=== PATIENT | male | born 1960 | race Asian ===

== ENCOUNTER 2023-11-10 03:07 | Inpatient (IN) | payer OTHER ==
[2023-11-10] VITALS (13 sets, daily range): BP systolic 114–133; BP diastolic 67–95; PULSE 89–116; RESP 18–32; TEMP 97.4–98; O2SAT 96–100
[~2023-11-10] VITALS: Ht 167.6 cm; Wt 67.0 kg
[2023-11-10] MEDS ORDERED: ALBU18HF12 IH (03:16)
[2023-11-10] MEDS: MethylPREDNISolone SOD SUCC 125 MG/2 ML VIAL IVP ONE (03:21)
[2023-11-10] MEDS: ALBUTEROL SULFATE 2.5 MG/0.5 ML 5 ML NEB SOLUTION NEB ONE ×2 (03:23→04:59)
[2023-11-10] MEDS: IPRATROPIUM BROMIDE 0.5 MG/2.5 ML NEB SOLUTION NEB ONE ×2 (03:23→04:59)
[2023-11-10 04:00] LABS: COVID AG,FIA SOURCE NASAL SWAB
[2023-11-10] MEDS: EPINEPHrine 1:1,000 [1 MG/ML] VIAL SQ ONE (04:04)
[2023-11-10 04:10] LABS: BASOPHILS % (AUTO) 0.7 % (0.0-2.0); EOSINOPHILS % (AUTO) 4.5 % (1.0-6.0); HEMATOCRIT 43.7 % (41-53); HEMOGLOBIN 13.8 g/dL (13.5-17.5); LYMPHOCYTES # (AUTO) 2.4 K/uL (1.0-4.8); LYMPHOCYTES % (AUTO) 22.2 % (22.0-44.0); MEAN CORPUSCULAR HEMOGLOBIN 25.1 pg (26.0-34.0); MEAN CORPUSCULAR HGB CONC 31.6 G/dL (31.0-37.0); MEAN CORPUSCULAR VOLUME 79 fL (80-100); MONOCYTES # (AUTO) 0.7 K/uL (0.1-1.0); MONOCYTES % (AUTO) 6.8 % (2.0-9.0); NEUTROPHILS % (AUTO) 65.8 % (40.0-70.0); PLATELET COUNT (AUTO) 506 K/uL (150-450); RED BLOOD CELL COUNT(AUTO) 5.51 MIL/uL (4.50-5.90); RED CELL DISTRIBUTION WIDTH 14.3 % (11.5-14.5); WHITE BLOOD COUNT (AUTO) 10.7 K/uL (4.5-11.0)
[2023-11-10 04:18] LABS: INFLUENZA TYPE A NEGATIVE FOR TYPE A (NEGATIVE); INFLUENZA TYPE B NEGATIVE FOR TYPE B (NEGATIVE); SARS-COV2 (COVID) ANTIGEN,FIA Negative (Negative)
[2023-11-10 04:21] LABS: TROPONIN I-HIGH SENSITIVITY 61 ng/L (<76)
[2023-11-10 04:22] LABS: LACTIC ACID 1.4 mmol/L (0.4-2.0)
[2023-11-10 04:29] LABS: ANION GAP 5 mmol/L (8-16); CALCIUM, TOTAL 9.5 mg/dL (8.8-10.5); CARBON DIOXIDE 34 mmol/L (22-29); CHLORIDE 99 mmol/L (98-107); CREATININE 0.94 mg/dL (0.60-1.30); GLOMERULAR FILTR. RATE CALC > 60 mL/min (>60); GLUCOSE,RANDOM 124 mg/dL (70-110); LIPASE 33 U/L (16-77); POTASSIUM 4.1 mmol/L (3.5-5.1); SODIUM SERUM 138 mmol/L (136-145); UREA NITROGEN, BLOOD 12 mg/dL (7-18)
[2023-11-10 04:46] LABS: B-TYPE NATRIURETIC PEPTIDE 6 pg/mL (0-100)
[2023-11-10] MEDS ORDERED: BISACODYL 10 MG RECTAL RECTAL SUPPOSITORY PR PRN (12:15)
[2023-11-10] MEDS ORDERED: ACETAMINOPHEN 325 MG TABLET PO PRN (12:15)
[2023-11-10] MEDS ORDERED: ONDANSETRON HCL 4 MG/2 ML VIAL IVP PRN (12:15)
[2023-11-10] MEDS ORDERED: MAGNESIUM HYDROXIDE SUSPENSION 30 ML UDCUP PO PRN (12:15)
[2023-11-10] MEDS ORDERED: HYDROCODONE/ACETAMINOPHEN 5-325 MG TABLET PO PRN (12:15)
[2023-11-10] MEDS ORDERED: ZOLPIDEM TARTRATE 5 MG TABLET PO PRN (12:15)
[2023-11-10] MEDS ORDERED: MORPHINE SULFATE 2 MG/ML SYRINGE IVP PRN (12:15)
[2023-11-10] MEDS: MONTELUKAST SODIUM 10 MG TABLET PO SCH (12:36)
[2023-11-10] MEDS ORDERED: SODIUM CHLORIDE 0.9% 500 ML IV ONE (13:15)
[2023-11-10] MEDS: ALBUTEROL SULFATE 2.5 MG/0.5 ML NEB SOLUTION NEB SCH (15:48)
[2023-11-10] MEDS: IPRATROPIUM BROMIDE 0.5 MG/2.5 ML NEB SOLUTION NEB SCH (15:48)
[2023-11-10] MEDS: CefTRIAXone 1 GM/DEXTROSE 50 ML IV SCH (15:55)
[2023-11-10] MEDS ORDERED: BENZONATATE 100 MG CAPSULE PO SCH (16:00)
[2023-11-10] MEDS: AZITHROMYCIN 500 MG/NS 250 ML IV SCH (16:36)
[2023-11-10] MEDS: HEPARIN SODIUM,PORCINE 5,000 UNITS/ML VIAL SQ SCH (16:37)
[2023-11-10] MEDS: BENZONATATE 100 MG CAPSULE PO SCH (16:37)
[2023-11-10] MEDS: MethylPREDNISolone SOD SUCC 125 MG/2 ML VIAL IVP SCH (18:24)
[2023-11-10] MEDS: DOCUSATE SODIUM 100 MG CAPSULE PO SCH (20:02)
[2023-11-10] MEDS: GuaiFENesin SR 600 MG ER TABLET PO SCH (20:02)
[2023-11-11] VITALS (11 sets, daily range): BP systolic 115–136; BP diastolic 70–83; PULSE 86–110; RESP 17–21; TEMP 97.6–98.1; O2SAT 93–99
[2023-11-11 08:13] LABS: EOSINOPHILS % (AUTO) 0 % (1.0-6.0); HEMATOCRIT 41.6 % (41-53); HEMOGLOBIN 13.1 g/dL (13.5-17.5); LYMPHOCYTES # (AUTO) 0.9 K/uL (1.0-4.8); MEAN CORPUSCULAR HEMOGLOBIN 25.2 pg (26.0-34.0); MEAN CORPUSCULAR HGB CONC 31.4 G/dL (31.0-37.0); MEAN CORPUSCULAR VOLUME 80 fL (80-100); MONOCYTES # (AUTO) 0.2 K/uL (0.1-1.0); MONOCYTES % (AUTO) 0.9 % (2.0-9.0); NEUTROPHILS # (AUTO) 16.6 K/uL (1.8-7.7); PLATELET COUNT (AUTO) 468 K/uL (150-450); RED CELL DISTRIBUTION WIDTH 14.5 % (11.5-14.5); WHITE BLOOD COUNT (AUTO) 17.6 K/uL (4.5-11.0)
[2023-11-11 08:16] LABS: NEUTROPHILS % (AUTO) 94.1 % (40.0-70.0)
[2023-11-11 08:35] LABS: ANION GAP 7 mmol/L (8-16); CALCIUM, TOTAL 9.7 mg/dL (8.8-10.5); CARBON DIOXIDE 33 mmol/L (22-29); CHLORIDE 101 mmol/L (98-107); CREATININE 0.87 mg/dL (0.60-1.30); GLOMERULAR FILTR. RATE CALC > 60 mL/min (>60); GLUCOSE,RANDOM 134 mg/dL (70-110); POTASSIUM 4.7 mmol/L (3.5-5.1); SODIUM SERUM 141 mmol/L (136-145); UREA NITROGEN, BLOOD 20 mg/dL (7-18)
[2023-11-11] MEDS: PANTOPRAZOLE SODIUM 40 MG DR TABLET PO SCH (08:43)
[2023-11-12] VITALS (14 sets, daily range): BP systolic 115–139; BP diastolic 71–82; PULSE 87–102; RESP 16–22; TEMP 97.6–97.9; O2SAT 95–100
[2023-11-12] MEDS: BENZOCAINE/MENTHOL LOZENGE PO PRN (04:55)
[2023-11-12 06:04] LABS: APPEARANCE,URINE CLEAR (CLEAR); BILIRUBIN,URINE NEGATIVE (NEGATIVE); COLOR,URINE COLORLESS (YELLOW); GLUCOSE, URINE (UA) NEGATIVE (NEGATIVE); KETONES,URINE NEGATIVE (NEGATIVE); LEUKOCYTE ESTERASE ,URINE NEGATIVE (NEGATIVE); NITRATE,URINE NEGATIVE (NEGATIVE); OCCULT BLOOD,URINE NEGATIVE (NEGATIVE); PH,URINE 6.5 (5.0-8.0); PROTEIN,URINE NEGATIVE (NEGATIVE); SPECIFIC GRAVITIY, URINE 1.013 (1.003-1.030); UROBILINOGEN,URINE <=1.0 mg/dL (<=1.0)
[2023-11-12 06:08] LABS: BACTERIA,URINE Rare /HPF (None Seen); RBC,URINE 0-2 /HPF (0-2); WBC,URINE 0-2 /HPF (0-5)
[2023-11-12 07:04] LABS: EOSINOPHILS % (AUTO) 0 % (1.0-6.0); HEMATOCRIT 39.6 % (41-53); HEMOGLOBIN 12.5 g/dL (13.5-17.5); LYMPHOCYTES # (AUTO) 0.7 K/uL (1.0-4.8); LYMPHOCYTES % (AUTO) 3.1 % (22.0-44.0); MEAN CORPUSCULAR HGB CONC 31.5 G/dL (31.0-37.0); MEAN CORPUSCULAR VOLUME 79 fL (80-100); MONOCYTES # (AUTO) 0.3 K/uL (0.1-1.0); MONOCYTES % (AUTO) 1.5 % (2.0-9.0); NEUTROPHILS # (AUTO) 22.1 K/uL (1.8-7.7); PLATELET COUNT (AUTO) 521 K/uL (150-450); RED BLOOD CELL COUNT(AUTO) 4.98 MIL/uL (4.50-5.90); RED CELL DISTRIBUTION WIDTH 14.2 % (11.5-14.5); WHITE BLOOD COUNT (AUTO) 23.1 K/uL (4.5-11.0)
[2023-11-12 07:14] LABS: ANION GAP 7 mmol/L (8-16); CALCIUM, TOTAL 9.3 mg/dL (8.8-10.5); CARBON DIOXIDE 31 mmol/L (22-29); CHLORIDE 102 mmol/L (98-107); CREATININE 0.94 mg/dL (0.60-1.30); GLOMERULAR FILTR. RATE CALC > 60 mL/min (>60); GLUCOSE,RANDOM 127 mg/dL (70-110); POTASSIUM 3.9 mmol/L (3.5-5.1); SODIUM SERUM 140 mmol/L (136-145); UREA NITROGEN, BLOOD 22 mg/dL (7-18)
[2023-11-12 07:27] LABS: NEUTROPHILS % (AUTO) 95.4 % (40.0-70.0)
[2023-11-12] MEDS: IPRATROPIUM BROMIDE 0.5 MG/2.5 ML NEB SOLUTION NEB PRN (12:35)
[2023-11-12] MEDS: ALBUTEROL SULFATE 2.5 MG/0.5 ML NEB SOLUTION NEB PRN (12:35)
[2023-11-12 12:44] LABS: ABG BASE EXCESS 5.2 mmol/L (-2.0-3.0); ABG HCO3 28.5 mmol/L (22.0-26.0); ABG METHEMOGLOBIN 0.5 % (0.0-1.5); ABG OXYGEN CONTENT 17.5 mL/dL (15.0-23.0); ABG OXYGEN SATURATION 93.6 % (95.0-98.0); ABG OXYHEMOGLOBIN 92.2 % (94.0-100.0); ABG PCO2 45 mmHg (35-45); ABG PH 7.437 (7.35-7.450); ABG TOTAL HEMOGLOBIN 13.5 G/dL (12.0-18.0); PO2, ARTERIAL BG 66.4 mmHg (79.0-87.0); SOURCE, BLOOD GAS ARTERIAL; TEMPERATURE, FAHRENHEIT, BG 98.6 FAHREN (96.0-98.6)
[2023-11-12 12:47] LABS: ALLEN TEST, BLOOD GAS Positive; SITE, BLOOD GAS RT RADIAL
[2023-11-12 12:48] LABS: ABG A-A DIFF O2 80.6 mmHg (10-20.0); O2 DEVICE,BLOOD GAS CANNULA (ROOM AIR)
[2023-11-12] MEDS ORDERED: GUAIF600 PO (17:41)
[2023-11-12] MEDS ORDERED: ALBU18HF12 IH (17:41)
[2023-11-12] MEDS ORDERED: PRED-729 PO (17:41)
[2023-11-12] MEDS ORDERED: MONT-35 PO (17:41)
[2023-11-12] MEDS ORDERED: BENZ-227 PO (17:41)
[2023-11-12] MEDS: PredniSONE 20 MG TABLET PO ONE (18:11)
== END 2023-11-12 21:05 | disposition home or self-care (01) | DRG 133 ==
LOC: EMS 03:07 → EDBD 03:07 → EDH 07:35 → 5N 09:57
PROVIDERS: ADMIT Internal Medicine; ATTEND Internal Medicine
PROC: 5A09357 Assistance with Respiratory Ventilation, Less than 24 Consecutive Hours, Continuous Positive Airway Pressure (ICD-10-PCS; principal; 2023-11-10)
DX: J96.21 Acute and chronic respiratory failure with hypoxia (principal); J45.902 Unspecified asthma with status asthmaticus; Z99.81 Dependence on supplemental oxygen; Z20.822 Contact with and (suspected) exposure to COVID-19; F17.210 Nicotine dependence, cigarettes, uncomplicated; J44.9 Chronic obstructive pulmonary disease, unspecified; Z79.899 Other long term (current) drug therapy
CPT/HCPCS: 36600; 71045; 80048; 81001; 82805; 83605; 83690; 83880; 84484; 85025; 87804; 93005; 94640; 94644; 94660; 99285; J0171; J0456; J0696; J1644; J2919; J7040; Q9967; 36415-L1; 36415-TC; J7613

== ENCOUNTER 2024-01-27 11:29 | Inpatient (IN) | payer OTHER ==
[2024-01-27] VITALS (8 sets, daily range): PULSE 79–110; RESP 20–38; O2SAT 100
[~2024-01-27] VITALS: Ht 170.2 cm; Wt 77.3 kg
[~2024-01-27 11:29] MED LIST: ALBU18HF12 IH; BENZ-227 PO; GUAIF600 PO; MONT-35 PO; PRED-729 PO
[2024-01-27] MEDS ORDERED: MAGNESIUM SULFATE 2 GM in DEXTROSE 5%-WATER 100 ML IV ONE (11:45)
[2024-01-27] MEDS: IPRATROPIUM BROMIDE 0.5 MG/2.5 ML NEB SOLUTION NEB ONE (11:49)
[2024-01-27] MEDS: ALBUTEROL SULFATE 2.5 MG/0.5 ML 5 ML NEB SOLUTION NEB ONE (11:50)
[2024-01-27] MEDS: MethylPREDNISolone SOD SUCC 125 MG/2 ML VIAL IVP ONE (12:00)
[2024-01-27 12:06] LABS: ABG BASE EXCESS -1.4 mmol/L (-2.0-3.0); ABG CARBOXYHEMOGLOBIN 0.8 % (0.5-1.5); ABG HCO3 21.7 mmol/L (21.0-28.0); ABG METHEMOGLOBIN 0.6 % (0.0-1.5); ABG OXYGEN SATURATION 99.7 % (94.0-98.0); ABG OXYHEMOGLOBIN 98.3 % (94.0-98.0); ABG PCO2 73 mmHg (35.0-48.0); ABG TOTAL HEMOGLOBIN 15.1 G/dL (13.5-17.5); SOURCE, BLOOD GAS ARTERIAL; TEMPERATURE, FAHRENHEIT, BG 97.3 FAHREN (96.0-98.6)
[2024-01-27 12:08] LABS: ABG PH 7.181 (7.350-7.450)
[2024-01-27 12:09] LABS: ALLEN TEST, BLOOD GAS POS; O2 DEVICE,BLOOD GAS BIPAP (ROOM AIR); PO2, ARTERIAL BG 442.3 mmHg (83.0-108.0); SITE, BLOOD GAS RT BRACHIAL; SPONTANEOUS VT, BG 325 ml
[2024-01-27] MEDS: MAGNESIUM SULFATE 2 GM/WATER 50 ML IV ONE (12:17)
[2024-01-27] MEDS ORDERED: ONDANSETRON HCL 4 MG/2 ML VIAL IVP PRN (12:45)
[2024-01-27] MEDS ORDERED: IPRATROPIUM BROMIDE 0.5 MG/2.5 ML NEB SOLUTION NEB PRN (12:45)
[2024-01-27] MEDS ORDERED: ALBUTEROL SULFATE 2.5 MG/0.5 ML NEB SOLUTION NEB PRN (12:45)
[2024-01-27] MEDS ORDERED: 0.9% SODIUM CHLORIDE 10 ML SYRINGE IVP PRN (12:45)
[2024-01-27] MEDS ORDERED: ACETAMINOPHEN 325 MG TABLET PO PRN (12:45)
[2024-01-27] MEDS: SODIUM CHLORIDE 0.9% 250 ML IV ONE (13:07)
[2024-01-27 13:14] LABS: COVID AG,FIA SOURCE NASAL SWAB
[2024-01-27 13:25] LABS: BASOPHILS % (AUTO) 0.2 % (0.0-2.0); EOSINOPHILS % (AUTO) 0 % (1.0-6.0); HEMATOCRIT 48.5 % (41-53); LYMPHOCYTES # (AUTO) 0.6 K/uL (1.0-4.8); LYMPHOCYTES % (AUTO) 3.2 % (22.0-44.0); MEAN CORPUSCULAR HEMOGLOBIN 25.3 pg (26.0-34.0); MEAN CORPUSCULAR HGB CONC 30.8 G/dL (31.0-37.0); MEAN CORPUSCULAR VOLUME 82 fL (80-100); MONOCYTES % (AUTO) 5.6 % (2.0-9.0); NEUTROPHILS # (AUTO) 16.7 K/uL (1.8-7.7); PLATELET COUNT (AUTO) 365 K/uL (150-450); RED BLOOD CELL COUNT(AUTO) 5.92 MIL/uL (4.50-5.90); RED CELL DISTRIBUTION WIDTH 14.6 % (11.5-14.5); WHITE BLOOD COUNT (AUTO) 18.4 K/uL (4.5-11.0)
[2024-01-27 13:29] LABS: ANION GAP 7 mmol/L (8-16); CALCIUM, TOTAL 8.6 mg/dL (8.8-10.5); CARBON DIOXIDE 32 mmol/L (22-29); CHLORIDE 100 mmol/L (98-107); CREATININE 0.89 mg/dL (0.60-1.30); GLOMERULAR FILTR. RATE CALC > 60 mL/min (>60); GLUCOSE,RANDOM 109 mg/dL (70-110); POTASSIUM 4.7 mmol/L (3.5-5.1); SODIUM SERUM 139 mmol/L (136-145); UREA NITROGEN, BLOOD 10 mg/dL (7-18)
[2024-01-27] MEDS: CefTRIAXone 1 GM/DEXTROSE 50 ML IV ONE (13:36)
[2024-01-27 13:37] LABS: B-TYPE NATRIURETIC PEPTIDE 37 pg/mL (0-100)
[2024-01-27 13:38] LABS: INFLUENZA TYPE A NEGATIVE FOR TYPE A (NEGATIVE); INFLUENZA TYPE B NEGATIVE FOR TYPE B (NEGATIVE); SARS-COV2 (COVID) ANTIGEN,FIA Negative (Negative)
[2024-01-27 13:39] LABS: TROPONIN I-HIGH SENSITIVITY 683 ng/L (<76)
[2024-01-27 13:54] LABS: ALANINE AMINOTRANSFERASE 21 U/L (12-78); ALBUMIN 3.4 g/dL (3.4-5.0); ALKALINE PHOSPHATASE 59 U/L (46-116); ASPARTATE AMINOTRANSFERASE 25 U/L (15-37); BILIRUBIN,TOTAL 0.2 mg/dL (0.1-1.0); CREATINE KINASE, TOTAL ONLY 241 U/L (39-308); TOTAL PROTEIN, SERUM 7.7 g/dL (6.4-8.2)
[2024-01-27] MEDS: AZITHROMYCIN 500 MG/NS 250 ML IV ONE (13:56)
[2024-01-27] MEDS: ASPIRIN 81 MG CHEWABLE TABLET PO ONE (13:56)
[2024-01-27 14:20] LABS: LACTATE DEHYDROGENASE 270 U/L (85-227)
[2024-01-27 14:26] LABS: LACTIC ACID 2.3 mmol/L (0.4-2.0)
[2024-01-27] MEDS: SODIUM CHLORIDE 0.9% 750 ML IV ONE (14:31)
[2024-01-27 14:34] LABS: ABG BASE EXCESS 0.3 mmol/L (-2.0-3.0); ABG CARBOXYHEMOGLOBIN 0.4 % (0.5-1.5); ABG HCO3 23.9 mmol/L (21.0-28.0); ABG METHEMOGLOBIN 0.7 % (0.0-1.5); ABG OXYGEN CONTENT 21.4 mL/dL (15.0-23.0); ABG OXYGEN SATURATION 99.7 % (94.0-98.0); ABG OXYHEMOGLOBIN 98.6 % (94.0-98.0); ABG PCO2 54 mmHg (35.0-48.0); ABG PH 7.307 (7.350-7.450); ABG TOTAL HEMOGLOBIN 14.4 G/dL (13.5-17.5); SOURCE, BLOOD GAS ARTERIAL; TEMPERATURE, FAHRENHEIT, BG 97.1 FAHREN (96.0-98.6)
[2024-01-27 14:35] LABS: ALLEN TEST, BLOOD GAS POS; O2 DEVICE,BLOOD GAS BIPAP (ROOM AIR); SITE, BLOOD GAS ROSS
[2024-01-27 14:36] LABS: SPONTANEOUS VT, BG 325 ml
[2024-01-27] MEDS: IPRATROPIUM BROMIDE 0.5 MG/2.5 ML NEB SOLUTION NEB SCH (14:48)
[2024-01-27] MEDS: ALBUTEROL SULFATE 2.5 MG/0.5 ML NEB SOLUTION NEB SCH (14:48)
[2024-01-27 15:22] LABS: TROPONIN I-HIGH SENSITIVITY 1266 ng/L (<76)
[2024-01-27] MEDS ORDERED: HEPARIN SODIUM,PORCINE 5,000 UNITS/ML VIAL IVP PRN (15:30)
[2024-01-27] MEDS: HEPARIN SODIUM,PORCINE 5,000 UNITS/ML VIAL IVP ONE (15:49)
[2024-01-27] MEDS: HEPARIN SODIUM 25000 UNITS/D5W 250 ML IV PRN (15:53)
[2024-01-27] MEDS: ATORVASTATIN CALCIUM 40 MG TABLET PO ONE (15:56)
[2024-01-27] MEDS ORDERED: HEPARIN SODIUM,PORCINE 5,000 UNITS/ML VIAL SQ SCH (16:00)
[2024-01-27] MEDS: ASPIRIN 300 MG RECTAL SUPPOSITORY PR ONE (16:19)
[2024-01-27] MEDS ORDERED: BENZONATATE 100 MG CAPSULE PO PRN (16:30)
[2024-01-27] MEDS: DEXTROSE 5%-LACTATED RINGERS 1,000 ML IV ONE (17:32)
[2024-01-27] MEDS: RINGERS SOLUTION,LACTATED 500 ML IV ONE (19:35)
[2024-01-27] MEDS: CHLORHEXIDINE GLUCONATE 2% TOWELETTE [2'S/6'S] TP SCH (21:10)
[2024-01-27 23:32] LABS: APPEARANCE,URINE CLEAR (CLEAR); BILIRUBIN,URINE NEGATIVE (NEGATIVE); COLOR,URINE LIGHT YELLOW (YELLOW); GLUCOSE, URINE (UA) TRACE mg/dL (NEGATIVE); KETONES,URINE 40-60 mg/dL (NEGATIVE); LEUKOCYTE ESTERASE ,URINE NEGATIVE (NEGATIVE); NITRATE,URINE NEGATIVE (NEGATIVE); OCCULT BLOOD,URINE TRACE (NEGATIVE); PH,URINE 5.5 (5.0-8.0); PROTEIN,URINE TRACE mg/dL (NEGATIVE); SPECIFIC GRAVITIY, URINE 1.015 (1.003-1.030); UROBILINOGEN,URINE <=1.0 mg/dL (<=1.0)
[2024-01-27] MEDS: HEPARIN SODIUM,PORCINE 5,000 UNITS/ML VIAL IVP PRN (23:39)
[2024-01-27 23:55] LABS: BACTERIA,URINE Rare /HPF (None Seen); WBC,URINE 0-2 /HPF (0-5)
[2024-01-28] VITALS (16 sets, daily range): BP systolic 108–141; BP diastolic 64–81; PULSE 72–108; RESP 18–24; TEMP 97.8–98.6; O2SAT 94–100
[2024-01-28 06:25] LABS: BASOPHILS % (AUTO) 0.3 % (0.0-2.0); EOSINOPHILS % (AUTO) 0 % (1.0-6.0); HEMATOCRIT 41.8 % (41-53); HEMOGLOBIN 12.9 g/dL (13.5-17.5); LYMPHOCYTES % (AUTO) 10.8 % (22.0-44.0); MEAN CORPUSCULAR VOLUME 81 fL (80-100); MONOCYTES # (AUTO) 0.8 K/uL (0.1-1.0); MONOCYTES % (AUTO) 8.2 % (2.0-9.0); NEUTROPHILS # (AUTO) 7.6 K/uL (1.8-7.7); NEUTROPHILS % (AUTO) 80.7 % (40.0-70.0); PLATELET COUNT (AUTO) 359 K/uL (150-450); RED BLOOD CELL COUNT(AUTO) 5.17 MIL/uL (4.50-5.90); RED CELL DISTRIBUTION WIDTH 14.6 % (11.5-14.5); WHITE BLOOD COUNT (AUTO) 9.4 K/uL (4.5-11.0)
[2024-01-28 06:53] LABS: TROPONIN I-HIGH SENSITIVITY 1245 ng/L (<76)
[2024-01-28] MEDS: FAMOTIDINE 20 MG/2 ML VIAL IVP SCH (08:31)
[2024-01-28] MEDS: MethylPREDNISolone SOD SUCC 125 MG/2 ML VIAL IVP SCH ×2 (08:32→17:30)
[2024-01-28] MEDS: ASPIRIN 81 MG DR TABLET PO SCH (09:16)
[2024-01-28] MEDS ORDERED: SODIUM CHLORIDE 0.9% 500 ML IV ONE (14:14)
[2024-01-28] MEDS: CefTRIAXone 1 GM/DEXTROSE 50 ML IV SCH (14:37)
[2024-01-28] MEDS: AZITHROMYCIN 500 MG/NS 250 ML IV SCH (15:40)
[2024-01-28] MEDS: BUDESONIDE 0.5 MG/2 ML NEB SOLUTION NEB SCH (20:06)
[2024-01-28] MEDS: ATORVASTATIN CALCIUM 40 MG TABLET PO SCH (20:30)
[2024-01-29] VITALS (12 sets, daily range): BP systolic 122–155; BP diastolic 72–87; PULSE 86–101; RESP 17–22; TEMP 97.6–98.5; O2SAT 92–99
[2024-01-29 06:34] LABS: PH,URINE DRUG SCREEN 7.5 (5.0-8.0)
[2024-01-29 06:42] LABS: ALCOHOL, URINE DRUG SCREEN NEGATIVE (NEGATIVE); AMPHET/METH SCREEN,URINE NEGATIVE (NEGATIVE); BARBITURATE SCREEN, URINE NEGATIVE (NEGATIVE); BENZODIAZEPINES SCREEN,URINE NEGATIVE (NEGATIVE); CANNABINOID SCREEN,URINE POSITIVE (NEGATIVE); COCAINE SCREEN,URINE NEGATIVE (NEGATIVE); METHADONE SCREEN, URINE NEGATIVE (NEGATIVE); OPIATE SCREEN,URINE NEGATIVE (NEGATIVE); PHENCYCLIDINE SCREEN,URINE NEGATIVE (NEGATIVE)
[2024-01-29 08:03] LABS: ANION GAP 9 mmol/L (8-16); CALCIUM, TOTAL 8.6 mg/dL (8.8-10.5); CARBON DIOXIDE 28 mmol/L (22-29); CHLORIDE 104 mmol/L (98-107); CREATININE 0.96 mg/dL (0.60-1.30); GLOMERULAR FILTR. RATE CALC > 60 mL/min (>60); GLUCOSE,RANDOM 153 mg/dL (70-110); POTASSIUM 3.9 mmol/L (3.5-5.1); SODIUM SERUM 141 mmol/L (136-145); UREA NITROGEN, BLOOD 22 mg/dL (7-18)
[2024-01-29 08:10] LABS: BASOPHILS % (AUTO) 0.1 % (0.0-2.0); EOSINOPHILS % (AUTO) 0 % (1.0-6.0); HEMATOCRIT 41.5 % (41-53); HEMOGLOBIN 12.8 g/dL (13.5-17.5); LYMPHOCYTES # (AUTO) 0.8 K/uL (1.0-4.8); LYMPHOCYTES % (AUTO) 4.9 % (22.0-44.0); MEAN CORPUSCULAR HGB CONC 30.9 G/dL (31.0-37.0); MEAN CORPUSCULAR VOLUME 81 fL (80-100); MONOCYTES # (AUTO) 0.4 K/uL (0.1-1.0); MONOCYTES % (AUTO) 2.6 % (2.0-9.0); NEUTROPHILS # (AUTO) 14.8 K/uL (1.8-7.7); PLATELET COUNT (AUTO) 355 K/uL (150-450); RED BLOOD CELL COUNT(AUTO) 5.13 MIL/uL (4.50-5.90); RED CELL DISTRIBUTION WIDTH 14.7 % (11.5-14.5)
[2024-01-29 08:13] LABS: NEUTROPHILS % (AUTO) 92.4 % (40.0-70.0)
[2024-01-29 08:18] LABS: TROPONIN I-HIGH SENSITIVITY 472 ng/L (<76)
[2024-01-30] VITALS (10 sets, daily range): BP systolic 123–155; BP diastolic 75–89; PULSE 72–110; RESP 18–22; TEMP 97.4–98.2; O2SAT 91–99
[2024-01-30 06:31] LABS: BASOPHILS % (AUTO) 0.2 % (0.0-2.0); EOSINOPHILS % (AUTO) 0 % (1.0-6.0); HEMATOCRIT 42.9 % (41-53); HEMOGLOBIN 13.5 g/dL (13.5-17.5); LYMPHOCYTES # (AUTO) 0.7 K/uL (1.0-4.8); LYMPHOCYTES % (AUTO) 3.5 % (22.0-44.0); MEAN CORPUSCULAR HEMOGLOBIN 25.3 pg (26.0-34.0); MEAN CORPUSCULAR HGB CONC 31.5 G/dL (31.0-37.0); MEAN CORPUSCULAR VOLUME 80 fL (80-100); MONOCYTES # (AUTO) 0.3 K/uL (0.1-1.0); MONOCYTES % (AUTO) 1.5 % (2.0-9.0); NEUTROPHILS # (AUTO) 18.4 K/uL (1.8-7.7); PLATELET COUNT (AUTO) 383 K/uL (150-450); RED BLOOD CELL COUNT(AUTO) 5.34 MIL/uL (4.50-5.90); RED CELL DISTRIBUTION WIDTH 14.5 % (11.5-14.5); WHITE BLOOD COUNT (AUTO) 19.4 K/uL (4.5-11.0)
[2024-01-30 06:54] LABS: ANION GAP 8 mmol/L (8-16); CALCIUM, TOTAL 8.8 mg/dL (8.8-10.5); CARBON DIOXIDE 30 mmol/L (22-29); CHLORIDE 103 mmol/L (98-107); CREATININE 0.84 mg/dL (0.60-1.30); GLOMERULAR FILTR. RATE CALC > 60 mL/min (>60); GLUCOSE,RANDOM 131 mg/dL (70-110); SODIUM SERUM 141 mmol/L (136-145); UREA NITROGEN, BLOOD 21 mg/dL (7-18)
[2024-01-30 06:58] LABS: NEUTROPHILS % (AUTO) 94.8 % (40.0-70.0)
[2024-01-30] MEDS: CLOPIDOGREL BISULFATE 75 MG TABLET PO SCH (08:06)
[2024-01-30] MEDS: HEPARIN SODIUM,PORCINE 5,000 UNITS/ML VIAL SQ SCH (08:15)
[2024-01-31] VITALS (10 sets, daily range): BP systolic 109–147; BP diastolic 65–95; PULSE 16–121; RESP 16–20; TEMP 97.6–98.6; O2SAT 92–99
[2024-01-31 06:33] LABS: BASOPHILS % (AUTO) 0.1 % (0.0-2.0); EOSINOPHILS % (AUTO) 0 % (1.0-6.0); HEMATOCRIT 41.3 % (41-53); LYMPHOCYTES # (AUTO) 0.6 K/uL (1.0-4.8); LYMPHOCYTES % (AUTO) 3.9 % (22.0-44.0); MEAN CORPUSCULAR HEMOGLOBIN 25.2 pg (26.0-34.0); MEAN CORPUSCULAR HGB CONC 31.5 G/dL (31.0-37.0); MEAN CORPUSCULAR VOLUME 80 fL (80-100); MONOCYTES # (AUTO) 0.3 K/uL (0.1-1.0); MONOCYTES % (AUTO) 2.1 % (2.0-9.0); NEUTROPHILS # (AUTO) 14.7 K/uL (1.8-7.7); PLATELET COUNT (AUTO) 365 K/uL (150-450); RED BLOOD CELL COUNT(AUTO) 5.16 MIL/uL (4.50-5.90); RED CELL DISTRIBUTION WIDTH 14.4 % (11.5-14.5); WHITE BLOOD COUNT (AUTO) 15.6 K/uL (4.5-11.0)
[2024-01-31 06:51] LABS: ANION GAP 7 mmol/L (8-16); CALCIUM, TOTAL 8.6 mg/dL (8.8-10.5); CARBON DIOXIDE 29 mmol/L (22-29); CHLORIDE 104 mmol/L (98-107); CREATININE 0.78 mg/dL (0.60-1.30); GLOMERULAR FILTR. RATE CALC > 60 mL/min (>60); GLUCOSE,RANDOM 143 mg/dL (70-110); POTASSIUM 3.9 mmol/L (3.5-5.1); SODIUM SERUM 140 mmol/L (136-145); UREA NITROGEN, BLOOD 22 mg/dL (7-18)
[2024-01-31 06:54] LABS: NEUTROPHILS % (AUTO) 93.9 % (40.0-70.0)
[2024-01-31] MEDS: MethylPREDNISolone SOD SUCC 40 MG/ML VIAL IVP SCH (18:34)
[2024-02-01] VITALS (21 sets, daily range): BP systolic 132–157; BP diastolic 76–103; PULSE 72–100; RESP 16–20; TEMP 97.4–98.5; O2SAT 94–98
[2024-02-01] MEDS ORDERED: LIDOCAINE/PF 1% 30 ML VIAL ONE (07:04)
[2024-02-01] MEDS ORDERED: IOHEXOL 300 MG/ML 100 ML VIAL ONE (07:04)
[2024-02-01] MEDS ORDERED: SODIUM BICARBONATE 50 MEQ/50 ML VIAL ONE (07:04)
[2024-02-01] MEDS ORDERED: HEPARIN SODIUM 1000 UNITS/NS 1,000 ML ONE (07:04)
[2024-02-01] MEDS ORDERED: NITROGLYCERIN 50 MG/D5% WATER 250 ML ONE (07:09)
[2024-02-01] MEDS ORDERED: FentaNYL CITRATE PF 100 MCG/2 ML VIAL ONE (07:09)
[2024-02-01] MEDS ORDERED: VERAPAMIL HCL 2.5 MG/ML 2 ML VIAL ONE (07:09)
[2024-02-01] MEDS ORDERED: MIDAZOLAM HCL 2 MG/2 ML VIAL ONE (07:10)
[2024-02-01] MEDS: HEPARIN SODIUM,PORCINE 1,000 UNITS/ML 10 ML VIAL IARTER ONE (08:57)
[2024-02-01] MEDS: IOHEXOL 300 MG/ML 100 ML VIAL IARTER ONE (08:58)
[2024-02-01] MEDS: FentaNYL CITRATE PF 100 MCG/2 ML VIAL IVP ONE (08:59)
[2024-02-01] MEDS: MIDAZOLAM HCL 2 MG/2 ML VIAL IVP ONE (08:59)
[2024-02-01] MEDS: NITROGLYCERIN/D5W 50 MG/250 ML IV BOTTLE IARTER ONE (09:01)
[2024-02-01] MEDS: LIDOCAINE 1% 30 ML/SOD BICARB 8.4% 4 ML SQ ONE (09:02)
[2024-02-01] MEDS: VERAPAMIL HCL 2.5 MG/ML 2 ML VIAL IARTER ONE (09:03)
[2024-02-01] MEDS: SODIUM CHLORIDE 0.9% 500 ML IV ONE (09:03)
[2024-02-01] MEDS: PredniSONE 20 MG TABLET PO SCH (17:34)
[2024-02-02] VITALS (7 sets, daily range): BP systolic 138–172; BP diastolic 64–97; PULSE 80–88; RESP 18–20; TEMP 97.7–98; O2SAT 94–99
[2024-02-02] MEDS ORDERED: ASPI-1444 PO (09:46)
[2024-02-02] MEDS ORDERED: ATOR40TA28 PO (09:46)
[2024-02-02] MEDS ORDERED: PANT-31 PO (09:47)
[2024-02-02] MEDS ORDERED: PRED-554 PO (09:48)
== END 2024-02-02 15:30 | disposition home or self-care (01) | DRG 720 ==
LOC: EMS 11:29 → EDBEDREQ 14:47 → EDH 18:47 → 5S 01-28 10:20
PROVIDERS: ADMIT Internal Medicine; ATTEND Internal Medicine
PROC: 5A09357 Assistance with Respiratory Ventilation, Less than 24 Consecutive Hours, Continuous Positive Airway Pressure (ICD-10-PCS; 2024-01-27)
PROC: 5A09357 Assistance with Respiratory Ventilation, Less than 24 Consecutive Hours, Continuous Positive Airway Pressure (ICD-10-PCS; 2024-01-28)
PROC: 4A023N7 Measurement of Cardiac Sampling and Pressure, Left Heart, Percutaneous Approach (ICD-10-PCS; principal; 2024-02-01)
PROC: B2151ZZ Fluoroscopy of Left Heart using Low Osmolar Contrast (ICD-10-PCS; 2024-02-01)
PROC: B2111ZZ Fluoroscopy of Multiple Coronary Arteries using Low Osmolar Contrast (ICD-10-PCS; 2024-02-01)
DX: A41.9 Sepsis, unspecified organism (principal); J96.01 Acute respiratory failure with hypoxia; I21.4 Non-ST elevation (NSTEMI) myocardial infarction; J45.902 Unspecified asthma with status asthmaticus; E87.29 Other acidosis; J18.9 Pneumonia, unspecified organism; J45.901 Unspecified asthma with (acute) exacerbation; Z20.822 Contact with and (suspected) exposure to COVID-19; J96.02 Acute respiratory failure with hypercapnia; F17.210 Nicotine dependence, cigarettes, uncomplicated
CPT/HCPCS: 36600; 71045; 80048; 80076; 80307; 81001; 82550; 82805; 83605; 83615; 83735; 83880; 84145; 84484; 85025; 85730; 87040; 87420; 87804; 92610; 93005; 93306; 94640; 94645; 94660; 99291; G0378; J0456; J0696; J1644; J2250; J2919; J3010; J3475; J3490; J7030; J7040; J7060; J7120; Q9967; 36415-L1; 36415-TC; J7613; Z7610